=== PATIENT | female | born 1990 | race Caucasian/White ===

== ENCOUNTER 2024-01-11 18:08 | Emergency (ER) | payer OTHER ==
[~2024-01-11] VITALS: Ht 175.3 cm; Wt 136.1 kg
[2024-01-11 18:36] LABS: HEMATOCRIT 38.5 % (36-48); MEAN CORPUSCULAR HEMOGLOBIN 19.5 pg (27.0-33.0); MEAN CORPUSCULAR HGB CONC 30.6 g/dL (32.0-36.0); MEAN CORPUSCULAR VOLUME 63.5 fL (79-99); PLATELET COUNT (AUTO) 336 K/uL (130-400); RED BLOOD CELL COUNT(AUTO) 6.06 MIL/uL (4.00-5.50); RED CELL DISTRIBUTION WIDTH 19.6 % (11.0-15.5); WHITE BLOOD COUNT (AUTO) 21.8 K/uL (4.8-10.8)
[2024-01-11 18:47] LABS: CREATININE 0.7 mg/dL (0.5-1.0); POTASSIUM 3.8 mmol/L (3.5-5.1)
[2024-01-11 20:32] LABS: APPEARANCE,URINE CLEAR (CLEAR); BILIRUBIN,URINE 0.5 mg/dL (NEGATIVE); COLOR,URINE DARK-YELLOW (YELLOW); GLUCOSE, URINE (UA) NEGATIVE (NEGATIVE); KETONES,URINE NEGATIVE (NEGATIVE); LEUKOCYTE ESTERASE ,URINE NEGATIVE Leu/uL (NEGATIVE); NITRATE,URINE 1+ (NEGATIVE); OCCULT BLOOD,URINE NEGATIVE (NEGATIVE); PH,URINE 5.5 (5.0-8.0); PROTEIN,URINE NEGATIVE (NEGATIVE)
[2024-01-11 20:35] LABS: ADD UA MICROSCOPIC YES
[2024-01-11] MEDS: KETOROLAC 30MG VIAL (30MG/ML) IVP ONE (20:35)
[2024-01-11] MEDS: 0.9%NACL 1000ML 1,000 ML IV ONE (20:35)
[2024-01-11 20:37] LABS: BACTERIA,URINE MANY /HPF (None Seen); MUCUS,URINE RARE LPF (None Seen); RBC,URINE 0-1 /HPF (0-1); SQUAMOUS EPITHELIAL CELL,UR FEW /HPF (0-2); WBC,URINE 26-50 /HPF (0-1)
[2024-01-11] MEDS ORDERED: IOHEXOL 350 MG/ML 100ML INFUS..BTL IV ONE (20:38)
[2024-01-11 21:08] LABS: CREATININE 0.8 mg/dL (0.5-1.0); POTASSIUM 3.6 mmol/L (3.5-5.1)
[2024-01-11 21:12] LABS: ALBUMIN 3.5 g/dL (3.5-5.0); BILIRUBIN,TOTAL 0.7 mg/dL (0.2-1.0); TOTAL PROTEIN, SERUM 8.7 g/dL (6.0-8.3)
[2024-01-11] MEDS: ZOSYN 3.375GM +NS 50ML IVPB SCH (21:49)
[2024-01-11] MEDS: ZOSYN 3.375GM+NS 50ML 50 ML ONE (21:49)
[2024-01-11] MEDS: 0.9%NACL 1000ML 1,000 ML IV SCH (22:08)
[2024-01-11] MEDS ORDERED: IBUP-2077 PO (22:23)
[2024-01-11 23:04] VITALS: BP 128/78; PULSE 77; RESP 16; O2SAT 99
== END 2024-01-11 23:01 | disposition home or self-care (01) ==
LOC: EDH 18:08
DX: D72.829 Elevated white blood cell count, unspecified (principal); R10.9 Unspecified abdominal pain
CPT/HCPCS: 99285; 74177; 96365; 71045; 96375; 80053; 83690; 85027; 87040; 87077; 87088; 87186; 83605 ×2; 81001; 81025; 36415; 80048; J7030 ×2; J1885; J2543; Q9967

== ENCOUNTER 2025-03-23 11:23 | Emergency (ER) | payer OTHER ==
[~2025-03-23] VITALS: Ht 175.3 cm; Wt 135.7 kg
[~2025-03-23 11:23] MED LIST: IBUP-2077 PO
[2025-03-23] MEDS ORDERED: FAMOTIDINE 20MG VIAL IV ONE (12:00)
[2025-03-23] MEDS ORDERED: 0.9%NACL 1000ML 1,000 ML IV ONE (12:00)
[2025-03-23] MEDS ORDERED: ondanSETRON 4MG INJ IVP ONE (12:00)
[2025-03-23] MEDS: FAMOTIDINE 20MG TAB PO ONE (12:12)
[2025-03-23] MEDS: ondanSETRON ODT 4MG TAB SL ONE (12:12)
[2025-03-23 12:22] LABS: APPEARANCE,URINE CLOUDY (CLEAR); BILIRUBIN,URINE NEGATIVE (NEGATIVE); COLOR,URINE YELLOW (YELLOW); GLUCOSE, URINE (UA) NEGATIVE (NEGATIVE); KETONES,URINE NEGATIVE (NEGATIVE); LEUKOCYTE ESTERASE ,URINE 75 Leu/uL (NEGATIVE); NITRATE,URINE 1+ (NEGATIVE); OCCULT BLOOD,URINE NEGATIVE (NEGATIVE); PROTEIN,URINE 20 mg/dL (NEGATIVE); UROBILINOGEN,URINE 0.2 mg/dL (0.2-1.0)
[2025-03-23 12:24] LABS: BASOPHILS # (AUTO) 0.06 K/uL (0.00-0.20); BASOPHILS % (AUTO) 0.6 % (0.0-5.0); EOSINOPHILS # (AUTO) 0.13 K/uL (0.00-0.70); EOSINOPHILS % (AUTO) 1.2 % (0.0-8.0); HEMATOCRIT 38.1 % (36-48); LYMPHOCYTES # (AUTO) 2.8 K/uL (1.0-4.8); LYMPHOCYTES % (AUTO) 26.4 % (21.0-51.0); MEAN CORPUSCULAR HEMOGLOBIN 19.9 pg (27.0-33.0); MEAN CORPUSCULAR HGB CONC 30.7 g/dL (32.0-36.0); MEAN CORPUSCULAR VOLUME 64.7 fL (79-99); MONOCYTES # (AUTO) 0.9 K/uL (0.1-1.0); MONOCYTES % (AUTO) 8.3 % (3.0-13.0); NEUTROPHILS # (AUTO) 6.6 K/uL (1.8-7.7); NEUTROPHILS % (AUTO) 62.6 % (40.0-77.0); PLATELET COUNT (AUTO) 376 K/uL (130-400); RED BLOOD CELL COUNT(AUTO) 5.89 MIL/uL (4.00-5.50); RED CELL DISTRIBUTION WIDTH 19.8 % (11.0-15.5); WHITE BLOOD COUNT (AUTO) 10.6 K/uL (4.8-10.8)
[2025-03-23 12:25] LABS: HCG,QUALITATIVE URINE NEGATIVE (NEGATIVE)
[2025-03-23 12:29] LABS: BACTERIA,URINE MOD /HPF (None Seen); MUCUS,URINE RARE LPF (None Seen); SQUAMOUS EPITHELIAL CELL,UR MOD /HPF (0-2)
[2025-03-23 12:34] LABS: CREATININE 0.5 mg/dL (0.5-1.0); POTASSIUM 3.7 mmol/L (3.5-5.1)
[2025-03-23 12:38] LABS: ALBUMIN 3.2 g/dL (3.5-5.0); BILIRUBIN,DIRECT 0.1 mg/dL (0.0-0.3); BILIRUBIN,TOTAL 0.3 mg/dL (0.2-1.0); TOTAL PROTEIN, SERUM 8.1 g/dL (6.0-8.3)
[2025-03-23] MEDS ORDERED: ONDA-243 PO (13:03)
[2025-03-23] MEDS ORDERED: CEPH500B PO (13:03)
--- NOTE | 2025-03-23 13:04 | ERN ---
General Chief Complaint: Nausea,Vomiting,Diarrhea Stated Complaint: N/V/, HEADACHE Time Seen by MD: 11:32 History of Present Illness Initial Comments 34 y/o female came in for nausea and vomiting after having breakfast. Pt otherwise has no concerns. 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 Head and Face: non-traumatic. Eyes: PERRL, pink conjunctivas, eyelid no trauma, anterior chamber with arcus senilis. Ears: Pinnas intact and no signs of trauma or erythema ear canals clear and no discharge TM no erythema Nose: No discharge, no bleeding. Oropharynx: Mouth normal, tongue pink, pharynx clear,no erythema, tonsils no exudates, no abscesses noted, mucous membrane moist Neck: Supple, non-tender, no thyromegaly, no masses, no JVD, no bruits Breast:Deferred Chest:No tenderness, no crepitus, no paradoxical movement, no retractions Lungs:Clear, well-ventilated, symmetric, no rales, no wheezing, no rhonchi, no stridor, good breath sounds bilaterally Heart: Regular rate, regular rhythm, no murmur, no gallops Vascular: no peripheral edema, Abdomen: Soft, positive bowel sounds, nondistended, no guarding, nontender, no rebound, no masses no hepatomegaly, no splenomegaly, no Hummel's sign, no hernias. Rectal: Deferred Genital: Deferred Neurological: Normal speech, motor function intact, sensory function intact Musculoskeletal: Neck nontender, full range of motion, back nontender, full range of motion, Extremities: nontender, full range of motion Skin: Color pink, dry, no turgor, no rash, no lacerations, no abrasions, no contusions. Lymphatic: Deferred Results Laboratory and Microbiology Lab and Micro Result Laboratory Tests Test 03/23/25 12:03 03/23/25 12:18 Urine Color YELLOW (YELLOW) Urine Appearance CLOUDY (CLEAR) H Urine pH 6.0 (5.0-8.0) Urine Specific [place] 1.024 (1.001-1.031) Urine Protein 20 mg/dL (NEGATIVE) H Urine Glucose (UA) NEGATIVE mg/dL (NEGATIVE) Urine Ketones NEGATIVE mg/dL (NEGATIVE) Urine Occult Blood NEGATIVE (NEGATIVE) Urine Nitrate 1+ (NEGATIVE) H Urine Bilirubin NEGATIVE mg/dL (NEGATIVE) Urine Urobilinogen 0.2 mg/dL (0.2-1.0) Urine Leukocyte Esterase 75 Ele/uL (NEGATIVE) H Urine RBC 2-5 /HPF (0-1) H Urine WBC 11-25 /HPF (0-1) H Urine Squamous Epithelial Cells MOD /HPF (0-2) Urine Bacteria MOD /HPF (None Seen) Urine HCG, Qualitative NEGATIVE (NEGATIVE) White Blood Count 10.6 K/uL (4.8-10.8) Red Blood Count 5.89 MIL/uL (4.00-5.50) H Hemoglobin 11.7 g/dL (12.0-16.0) L Hematocrit 38.1 % (36-48) Mean Corpuscular Volume 64.7 fL (79-99) L Mean Corpuscular Hemoglobin 19.9 pg (27.0-33.0) L Mean Corpuscular Hemoglobin Concent 30.7 g/dL (32.0-36.0) L Red Cell Distribution Width 19.8 % (11.0-15.5) H Platelet Count 376 K/uL (130-400) Mean Platelet Volume 10.5 fL (7.5-10.5) Immature Granulocyte % (Auto) 0.9 % (0-1) Neutrophils (%) (Auto) 62.6 % (40.0-77.0) Lymphocytes (%) (Auto) 26.4 % (21.0-51.0) Monocytes (%) (Auto) 8.3 % (3.0-13.0) Eosinophils (%) (Auto) 1.2 % (0.0-8.0) Basophils (%) (Auto) 0.6 % (0.0-5.0) Neutrophils # (Auto) 6.6 K/uL (1.8-7.7) Lymphocytes # (Auto) 2.8 K/uL (1.0-4.8) Monocytes # (Auto) 0.9 K/uL (0.1-1.0) Eosinophils # (Auto) 0.13 K/uL (0.00-0.70) Basophils # (Auto) 0.06 K/uL (0.00-0.20) Absolute Immature Granulocyte (auto 0.10 K/uL (0-1) Nucleated Red Blood Cells 0.0 % (0.0-0.19) Red Blood Cell Morphology See comments Sodium Level 140 mmol/L (136-145) Potassium Level 3.7 mmol/L (3.5-5.1) Chloride Level 102 mmol/L (101-111) Carbon Dioxide Level 30 mmol/L (21-32) Blood Urea Nitrogen 8 mg/dL (7-18) Creatinine 0.5 mg/dL (0.5-1.0) Glomerular Filtration Rate Calc 125 mL/min (>90) Random Glucose 102 mg/dL (70-105) Total Calcium 9.2 mg/dL (8.5-10.1) Total Bilirubin 0.3 mg/dL (0.2-1.0) Direct Bilirubin 0.1 mg/dL (0.0-0.3) Aspartate Amino Transf (AST/SGOT) 13 U/L (10-37) Alanine Aminotransferase (ALT/SGPT) 17 U/L (12-78) Alkaline Phosphatase 88 U/L (50-136) Total Protein 8.1 g/dL (6.0-8.3) Albumin 3.2 g/dL (3.5-5.0) L MDM MDM: Differential diagnosis: There are no social concerns with this patient. Prescription drug management Prescriptions will include: Medical management and examination interpretation discussions were had by ga wi th other qualified healthcare professionals as indicated for the patient's care. ED Course Orders Procedure Category Date Status Time Cbc With Differential LAB 03/23/25 Complete 11:32 Basic Metabolic Panel LAB 03/23/25 Complete 11:32 ,Urine Test LAB 03/23/25 Complete 11:32 Hepatic Function Panel LAB 03/23/25 Complete 11:32 Urinalysis LAB 03/23/25 Complete W/Microscopic 11:32 Ondansetron 4mg Inj PHA 03/23/25 Complete (Zofran 4mg Inj) 12:00 Famotidine 20mg Vial PHA 03/23/25 Complete (Pepcid 20mg Vial) 12:00 0.9%Nacl 1000ml (Ns PHA 03/23/25 Complete 1000ml) 12:00 Famotidine 20mg Tab PHA 03/23/25 Complete (Pepcid 20mg Tab) 12:00 Ondansetron Odt 4mg PHA 03/23/25 Complete Tab (Zofran 4mg Odt) 12:00 Culture Urine DARLENE 03/23/25 In Process 12:23 Current Medications Medications (Trade) Dose Ordered Sig/Carlos Route PRN Reason Start Time Stop Time Status Last Admin Dose Admin Famotidine (Pepcid 20mg Vial) 20 mg ONCE ONCE IV 03/23/25 12:00 03/23/25 12:03 DC Famotidine (Pepcid 20mg Tab) 20 mg ONCE ONCE PO 03/23/25 12:00 03/23/25 12:04 DC 03/23/25 12:12 Ondansetron HCl (zoFRAN 4MG INJ) 4 mg ONCE ONCE IVP 03/23/25 12:00 03/23/25 12:03 DC Ondansetron HCl (zoFRAN 4MG ODT) 4 mg ONCE ONCE SL 03/23/25 12:00 03/23/25 12:04 DC 03/23/25 12:12 Sodium Chloride 1,000 ml @ 125 mls/hr ONCE ONCE IV 03/23/25 12:00 03/23/25 12:03 DC Vital Signs Date Time Temp Pulse Resp B/P (MAP) Pulse Ox O2 Delivery O2 Flow Rate FiO2 03/23/25 12:04 97.9 88 16 112/78 96 Room Air* 0 21 03/23/25 11:25 97.9 88 16 112/78 96 Room Air 0 DX & DISP Disposition: Discharge Departure Impression: Primary Impression: UTI (urinary tract infection) Condition: Stable Scripts Ondansetron (Ondansetron Odt) 4 Mg Tab.rapdis 4 MG PO BID for 2 Days, #4 TAB Prov: CONNIE CASTILLO MD 03/23/25 Cephalexin Monohydrate (Keflex) 500 Mg Cap 500 MG PO BID for 5 Days, #10 CAP Prov: CONNIE CASTILLO MD 03/23/25 Referrals: SELF,REFERRAL (PCP) CONNIE CASTILLO MD Mar 23, 2025 13:04
[2025-03-23 13:09] VITALS: BP 121/74; PULSE 82; RESP 16; TEMP 97.9; O2SAT 96
== END 2025-03-23 13:10 | disposition home or self-care (01) ==
LOC: EDH 11:23
DX: N39.0 Urinary tract infection, site not specified (principal); Z79.899 Other long term (current) drug therapy
CPT/HCPCS: 36415; 80048; 80076; 81001; 81025; 85025; 87086; 87186; 99283